=== PATIENT | male | born 1990 | race Caucasian/White ===

== ENCOUNTER 2024-08-23 19:53 | Emergency (ER) | payer OTHER, SELFPAY ==
--- OUTSIDE RECORDS SUMMARY | 2024-08-23 19:55 | XMS_ITS | Clinical Summary ---
Author Organization [facility] Address [address] [place] [id number] Care Team Providers Care Marketing Finance Manager Name Role Phone Pcp, No Primary Care Provider Unavailabl e Allergies No known active allergies Medications No known medications Active Problems Problem Noted Date Diagnosed Date Right shoulder internal rotation deficit 015 Impingement syndrome of right shoulder 5 Crepitus of right shoulder w ith external rotation in abduction 04/04/2015 Right shoulder pain 10/26/2014 Overview (02/27/2015): Feb 2015: Saw Dr. Guajardo, recommended [facility], adjust lifting program, and consider subacromial injection. Diagnosis of GIRD, AC osteolysis, and Second Impingement. Viral wart 05/02/2011 Immunizations Immunization Administration Dates Next Due DTP 08/04/1990,1989,1989 ,1989 DTP-HIB 01/19/1994 HIB HbOC (HibTITER) 07/28/1990,05/16/1990 Hepatitis B (Peds) 07/10/1999,02/09/1999, 999 MMR 06/05/2001,07/28/1990 Meningococcal Vaccine (Menactra) 09/18/2007 Oral Polio Vaccine 01/19/1994,08/04/1990, 990,1989 Td (Age >=7 Years) 12/22/2001 Family History Relation Name Status Comments Father Alive Mother Alive Social History Tobacco Use Types Packs/Day Years Used Date Smoking Tobacco: Never Smokeless Tobacco: Never Tobacco Cessation:Counseling Given: Yes Alcohol Use Standard Drinks/Week Comments No 0 (1 standard drink = 0.6 oz pur e alcohol) Sex and Gender Information Value Date Recorded Sex Assigned at Not on file 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 Gender Identity Not on file Sexual Orientation Not on file Obstetrics History Last Filed Vital Signs Vital Sign Reading Time Taken Comments Blood Pressure 108/62 12/09/2014 12:22 PM CDT Pulse 68 12/09/2014 12:22 PM CDT Temperature 36.4 C (97.5 F) 07/25/2011 8:08 AM CDT Respiratory Rate - - Oxygen Saturation 100% 10/04/2014 3:25 PM CDT Inhaled Oxygen Concentration - - Weight 65.8 kg (145 lb) 12/09/2014 12:22 PM CDT Height 170.2 cm (5' 7) 10/04/2014 3:25 PM CDT Body Mass Index 22.71 10/04/2014 3:25 PM CDT Plan of Treatment Health Maintenance Due Date Last Done Comments Tdap 2000 Depression screening for age 12+ 2001 HIV for age 15-65 2004 BMI (ht and wt on same day) for age 18+ 2007 Hepatitis C screening for ag e 18-79 2007 Tetanus booster 12/23/2011 12/22/2001 COVID-19 vaccine series (2023- season) 2023 Lipids for age 35-44 2024 Influenza Vaccine (Season Ended) 2024 Pneumococcal series for age 6-49 Aged Out No longer eligible based on patient's age to complete this topic Care Teams Marketing Finance Manager Relationship Specialty Start Date End Date Pcp, No . PCP - General 05/01/13
[2024-08-23 20:02] VITALS: BP 128/76; PULSE 68; RESP 16; TEMP 37.1; O2SAT 99
--- NOTE | 2024-08-23 20:23 | ED.GENADULT ---
HPI - General Adult General Date Seen: 08/23/24 Chief complaint: Nose Injury/Pain Stated complaint: nose injury Time Seen by Provider: 08/23/24 20:22 History of Present Illness HPI narrative: 34-year-old male presenting to the ER today with nasal injury after he was struck in the nose by a baseball. He is generally healthy and up-to-date on his vaccinations. He has no history of coagulopathy and he is not anticoagulated. He was in a baseball game tonight when he was struck in the nose by a baseball that was hit by a batter. He suffered a nasal injury and nose bleed but no other injury. No other pain in his face. No dental injury. No headache. No loss of consciousness. No blurry vision. No confusion. He had to put some gauze in his nostrils to stop is no sleep but was able to finish playing the baseball game. Because of his nosebleed and nasal injury, he came to the ER for evaluation after the game was over. He has does not have any other injury. No headache. No neck pain. Bleeding from his nose has now stopped. He feels like his nose is little bit swollen and it is hard to breathe because it is packed with gauze. Related Data Home Medications ?Medication ?Instructions ?Recorded ?Confirmed No Known Home Medications 08/23/24 08/23/24 Allergies Allergy/AdvReac Type Severity Reaction Status Date / Time No Known Drug Allergies Allergy Verified 08/23/24 20:00 Exam Narrative: Exam Narrative: Constitutional: Appears well-developed and well-nourished. Alert. Conversant. Non toxic. HENT: Head: No depressed skull fracture, Raccoon Eyes, Lynn's sign, or hemotympanum. Face normal. TMs normal Nose: Subtle swelling over the bridge of the nose but no obvious deformity. No crepitus. Mildly tender over the bridge of the nose. He has blood-soaked gauze in both nostrils which she gently removed for exam. After removing the gauze he has no ongoing epistaxis. Otoscopic examination reveals no ongoing epistaxis inside. There is subtle leftward deviation of the septum but patient is not sure if this is chronic or new. I do not see any septal hematoma. Mouth/Throat: Oral mucosa is clear and moist. no trismus. Pharynx normal. Tonsils symmetric. No tonsillar enlargement, erythema, or exudate. No posterior pharyngeal bleeding. Eyes: Conjunctivae normal. EOM normal. Pupils equal, round, and reactive to light. No scleral icterus. Neck: Normal range of motion. Neck supple. No tracheal deviation present. Cardiovascular: Normal rate, regular rhythm. No gallop. No friction rub. No murmur heard. Pulmonary/Chest: Effort normal. No stridor. No respiratory distress. No wheezes. No rales. No rhonchi . Musculoskeletal: RUE: Normal range of motion. No tenderness. No deformity LUE: Normal range of motion. No tenderness. No deformity RLE: Normal range of motion. No edema. No tenderness. No deformity LLE: Normal range of motion. No edema. No tenderness. No deformity Lymph: No cervical adenopathy. Neurological: Alert and oriented to person, place, and time. Normal strength. CN II-VII intact. No sensory deficit. GCS eye subscore is 4. GCS verbal subscore is 5. GCS motor subscore is 6. Normal coordination . Polite. Normal memory. Conversant. Moves all 4 extremities purposely. Coordination normal. Gait normal. Skin: Skin is warm and dry. No rash noted. No pallor. Normal capillary refill. Psychiatric: Normal mood. Normal affect. Const: Vital Signs, click to edit/add: Vital Signs - 24 hr 08/23/24 20:02 Temperature 98.7 F Pulse Rate [Pulse Oximeter] 68 Respiratory Rate 16 Blood Pressure [Ri ght Upper Arm] 128/76 Pulse Oximetry 99 Oxygen Delivery Me thod Room Air Course Vital Signs Vital signs: Initial Vital Signs Temperature 98.7 F 08/23/24 20:02 Temperature Source Temporal Artery Scan 08/23/24 20:02 Pulse Rate 68 08/23/24 20:02 Respiratory Rate 16 08/23/24 20:02 Blood Pressure 128/76 08/23/24 20:02 Blood Pressure Mean 93 08/23/24 20:02 Pulse Oximetry 99 08/23/24 20:02 Oxygen Delivery Method Room Air 08/23/24 20:02 Vital Signs Temperature 98.7 F 08/23/24 20:02 Pulse Rate 68 08/23/24 20:02 Respiratory Rate 16 08/23/24 20:02 Blood Pressure 128/76 08/23/24 20:02 Pulse Oximetry 99 08/23/24 20:02 Oxygen Delivery Method Room Air 08/23/24 20:02 Temperature 98.7 F 08/23/24 20:02 Pulse Rate 68 08/23/24 20:02 Respiratory Rate 16 08/23/24 20:02 Blood Pressure 128/76 08/23/24 20:02 Pulse Oximetry 99 08/23/24 20:02 Oxygen Delivery Method Room Air 08/23/24 20:02 Medical Decision Making MDM Narrative Medical decision making narrative: Very pleasant generally healthy 34-year-old male presenting to the ER today with nasal pain and bleeding after he was struck in the nose by a baseball this evening. Although he was struck in the nose he does not have any symptoms of traumatic brain injury or head injury. At this point I do not think he needs CT scan to look for intracranial hemorrhage. He does not have any C-spine injury. He is neurologically intact. He does have signs of nasal trauma with nasal swelling. He had epistaxis prior to arrival but is no longer bleeding after arriving here in the ER. My evaluation in the nose does reveal some swelling but no definite external deformity. He does appear to have a leftward deviation of the septum. Facial CT is obtained and shows minimally displaced nasal fractures and also a left maxilla frontal process fracture. There is no sign of any blood in the sinus or other injury of the mid axilla such as orbital floor fracture. Discussed with ENT, Dr. Marmolejo. He would have the patient follow-up with him in clinic within the next 48-72 hours (on Saturday or Saturday). Discussed the plan of care with patient and he is in agreement. Precautions for return to the ER reviewed and questions answered. Imaging Data CT facial bones: Attestation: I have reviewed the pertinent imaging results. Radiologist's impression: Impression: 1. Recent fractures of the left nasal bones and left frontal process of the maxilla demonstrating mild rightward angulation and displacement. Soft tissue swelling involving the left nasal fold. Discharge Plan Discharge Clinical Impression: Closed fracture nasal bone, Maxillary fracture Patient Disposition: Home, Self-Care Instructions: Nasal Fracture (ED), Facial Fracture (DC) Additional Instructions: As we discussed, please come back to the ER right away if you have any concerns especially worsening or severe pain, headache the, confusion, vomiting, or if you have uncontrolled nosebleed. It is okay to use Tylenol or ibuprofen if needed for pain. Rest and avoid strenuous activities until you are cleared to return to full activity by the ENT surgeon. Please call the [facility] medical specialist tomorrow morning to arrange an ER follow-up visit with the ENT surgeon (Dr. Marmolejo) on Saturday or Saturday. You can call [phone] to arrange that appointment. Remember if you have any problems, you can come back to the ER any time. Prescriptions: No Action No Known Home Medications Follow Up/Referrals: Provider,Not a Local [Primary Care Provider] - Stand Alone Forms: [employer] Info Instructions
--- NOTE | 2024-08-23 20:40 | CRLHL7_ITS ---
For Patients: As a result of the Century Cures Act, medical imaging exams and procedure reports are released immediately into your electronic medical record. You may view this report before your referring provider. If you have questions, please contact your health care provider. Indication: Trauma. Technique: Noncontrast CT images of the facial bones. Comparison: None. Findings: Recent fractures of the left nasal bones and left frontal process of the maxilla demonstrating mild rightward angulation and displacement. Soft tissue swelling involving the left nasal fold. No retrobulbar hemorrhage. Minimal paranasal sinus mucosal thickening. The mastoid air cells are clear. Limited images through the brain are without intracranial mass effect. Impression: 1. Recent fractures of the left nasal bones and left frontal process of the maxilla demonstrating mild rightward angulation and displacement. Soft tissue swelling involving the left nasal fold. Please note that all CT scans at this facility use dose modulation, iterative reconstruction, and/or weight-based dosing when appropriate to reduce radiation dose to as low as reasonably achievable. Dictated by Anuj Andrade MD @ 08/23/2024 9:09:42 PM (Electronically Signed)
--- OUTSIDE RECORDS SUMMARY | 2024-08-23 21:09 | XMS_ITS | Clinical Summary ---
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 PCP - General 05/01/13
== END 2024-08-23 21:44 | disposition home or self-care (01) ==
PROVIDERS: Emergency Provider Emergency Medicine
DX: S02.2XXA Fracture of nasal bones, initial encounter for closed fracture (principal); W21.03XA Struck by baseball, initial encounter; Y93.64 Activity, baseball
CPT/HCPCS: 70486; 99283; 99284

== ENCOUNTER 2024-09-02 06:16 | Day surgery (SDC) | payer OTHER, SELFPAY ==
[2024-09-02] VITALS (10 sets, daily range): BP systolic 105–122; BP diastolic 67–80; PULSE 65–88; RESP 15–20; TEMP 36.6–36.8; O2SAT 98; BMI 24.2
[2024-09-02] MEDS: LACTATED RINGERS 1000 ML 1,000 ML 100 ML IV (07:00)
[2024-09-02] MEDS: SODIUM CHLORIDE 0.9 % (FLUSH) 10 ML SYRINGE IVF (07:09)
[2024-09-02] MEDS: OXYMETAZOLINE 0.05% NASAL SPRAY 2 SPRAY NOSTRIL-B (07:19)
[2024-09-02] MEDS: COCAINE HCL 4 % 4 ML SOLUTION NOSTRIL-B (07:38)
--- NOTE | 2024-09-02 07:44 | W.PM.ENTPROC ---
Procedure Note Date of procedure: 09/02/24 Procedure: Preop diagnosis depressed left nasal fracture Postop diagnosis same Procedure close reduction nasal fracture Under general trach anesthesia patient was prepped and draped usual fashion. The nose was decongested with cocaine pledgets. Nose was inspected with a speculum I open the speculum that see appear to read medialized the septum. The depressed fracture was marked externally with the fracture elevator and then the elevator was inserted to that level and the fracture elevated. The fracture was relatively unstable so was fixated with a Merocel pack beneath and Steri tapes on top. Patient procedure well was taken recovery in satisfactory condition. Blood loss less than 5 mL. Surgeon: Faizan Marmolejo MD
[2024-09-02] MEDS: MUPIROCIN 1 GM PACKET 1 APPLIC TOPICAL (07:46)
--- NOTE | 2024-09-02 07:53 | P.ANES_ITS ---
Anesthesia Charges Start Date/Time Anesthesia Start Date: 09/02/24 Anesthesia Start Time: 07:30 Stop Date/Time Anesthesia Stop Date: 09/02/24 Anesthesia Stop Time: 07:52 Coding CPT Codes CPT Codes: ANESTH NOSE/SINUS SURGERY - 24283 ([id number]) P1 - NORMAL HEALTHY PATIENT, QK - REGIONAL TRUCK DRIVER 2-4 CNCRNT ANES PROC, QX - HOME LENDING OFFICER SVNakia W/ MED DIRECTION
--- NOTE | 2024-09-02 07:53 | W.ANESCHARGE ---
Anesthesia Charges Start Date/Time Anesthesia Start Date: 09/02/24 Anesthesia Start Time: 07:30 Stop Date/Time Anesthesia Stop Date: 09/02/24 Anesthesia Stop Time: 07:52 Coding CPT Codes CPT Codes: ANESTH NOSE/SINUS SURGERY - 56094 ([id number]) P1 - NORMAL HEALTHY PATIENT, QK - HOME MANAGER 2-4 CNCRNT ANES PROC, QX - MANAGER DELI SVNakia W/ MED DIRECTION
--- NOTE | 2024-09-02 08:39 | P.ANES_ITS ---
Anesthesia Charges Start Date/Time Anesthesia Start Date: 09/02/24 Anesthesia Start Time: 07:30 Stop Date/Time Anesthesia Stop Date: 09/02/24 Anesthesia Stop Time: 07:52 Coding CPT Codes CPT Codes: ANESTH NOSE/SINUS SURGERY - 97405 ([id number]) QK - DUST BOX TENDER 2-4 CNCRNT ANES PROC, QX - SMOKE CONTROL SUPERVISOR SVC W/ MD MED DIRECTION, P1 - NORMAL HEALTHY PATIENT
--- NOTE | 2024-09-02 08:39 | W.ANESCHARGE ---
Anesthesia Charges Start Date/Time Anesthesia Start Date: 09/02/24 Anesthesia Start Time: 07:30 Stop Date/Time Anesthesia Stop Date: 09/02/24 Anesthesia Stop Time: 07:52 Coding CPT Codes CPT Codes: ANESTH NOSE/SINUS SURGERY - 34930 ([id number]) QK - UNDERWRITER 2-4 CNCRNT ANES PROC, QX - MEDICAL CASH POSTER SVC W/ MD MED DIRECTION, P1 - NORMAL HEALTHY PATIENT
[2024-09-02] MEDS: IBUPROFEN 200 MG TABLET PO (08:55)
== END 2024-09-02 09:06 | disposition home or self-care (01) ==
PROVIDERS: Visit Provider Otolaryngology
PROC: 0NSBXZZ Reposition Nasal Bone, External Approach (ICD-10-PCS; CPT 21320; principal; 2024-09-02 07:30)
DX: S02.2XXA Fracture of nasal bones, initial encounter for closed fracture (principal)
CPT/HCPCS: 21320; 00160; A9270; J0330; J1100; J2250; J2405; J2704; J3010; J7120